=== PATIENT | female | born 1945 | race African-American/Black ===

== ENCOUNTER → 2017-07-21 | Day surgery (SDC) | payer MEDICARE ==
[~2017-07-21] MED LIST: LIDOCAINE 1% PF 2 ML VIAL. ID; LIDOCAINE 2% 100 MG/5 ML SYRINGE.; MIDAZOLAM HCL/PF 2 MG/2 ML VIAL. IV; PROPOFOL 20 ML IV; fentaNYL PF VIAL 100 MCG/2 ML VIAL IV
[2017-07-21] MEDS: IV RINGERS,LACTATED 1000ML 1,000 ML IV (09:29)
== END | disposition home or self-care (01) ==
LOC: SURG 09:03
DX: K29.50 Unspecified chronic gastritis without bleeding (principal); K31.7 Polyp of stomach and duodenum; K20.9 Esophagitis, unspecified; K44.9 Diaphragmatic hernia without obstruction or gangrene; K31.89 Other diseases of stomach and duodenum; I10 Essential (primary) hypertension; F41.9 Anxiety disorder, unspecified; D64.9 Anemia, unspecified; M06.9 Rheumatoid arthritis, unspecified; Z90.11 Acquired absence of right breast and nipple
CPT/HCPCS: 43239; 88305; 88342; J2704

== ENCOUNTER → 2017-12-07 | Outpatient (CLI) | payer MEDICARE | END | disposition home or self-care (01) | LOC: KCIC DEXA 10:05 | DX: Z13.820 Encounter for screening for osteoporosis (principal); I10 Essential (primary) hypertension; D64.9 Anemia, unspecified; K21.0 Gastro-esophageal reflux disease with esophagitis; Z80.0 Family history of malignant neoplasm of digestive organs; Z78.0 Asymptomatic menopausal state | CPT/HCPCS: 77080 ==